=== PATIENT | male | born 1930 | race Caucasian/White ===

== ENCOUNTER → 2016-10-17 | Outpatient (CLI) | payer OTHER | LOC: FIMAGING 09:49 | DX: I65.23 Occlusion and stenosis of bilateral carotid arteries (principal); I10 Essential (primary) hypertension; Z86.73 Personal history of transient ischemic attack (TIA), and cerebral infarction without residual deficits; E11.9 Type 2 diabetes mellitus without complications ==

== ENCOUNTER → 2016-11-11 | Outpatient (CLI) | payer OTHER ==
[~2016-11-11] MED LIST: GADOBUTROL 10 ML VIAL IVP ONE
[2016-11-11 09:25] LABS: CREATININE 1.9 mg/dL (0.7-1.3)
== END ==
LOC: FIMAGING 08:14
DX: I77.1 Stricture of artery (principal)
CPT/HCPCS: 70549; A9585

== ENCOUNTER 2017-04-13 15:07 | Observation (INO) | payer OTHER ==
--- NOTE | 2017-04-13 15:22 | EDPHY ---
H & P Time Seen by Provider: 04/13/17 15:10 HPI/ROS: CHIEF COMPLAINT: Fever, cough, vomiting HISTORY OF PRESENT ILLNESS: The patient is an 86-year-old man who comes to emergency department by EMS complaining of a cough for the last 2 days and today he has had post-tussive emesis. He denies abdominal pain. No diarrhea. He is also found to have a fever here. He has not had a flu shot this year. He denies shortness of breath. He denies chest pain. No urinary symptoms. No rashes. REVIEW OF SYSTEMS: Constitutional: denies: chills, fever, recent illness, recent injury EENTM: denies: blurred vision, double vision, nose congestion Respiratory: See HPI Cardiac: denies: chest pain, irregular heart rate, lightheadedness, palpitations Gastrointestinal/Abdominal: denies: abdominal pain, diarrhea, nausea, vomiting, blood streaked stools Genitourinary: denies: dysuria, frequency, hematuria, pain Musculoskeletal: denies: joint pain, muscle pain Skin: denies: lesions, rash, jaundice, bruising Neurological: denies: headache, numbness, paresthesia, tingling, dizziness, weakness Hematologic/Lymphatic: denies: blood clots, easy bleeding, easy bruising Immunologic/allergic: denies: HIV/AIDS, transplant EXAM: GENERAL: well-nourished and in no acute distress. HEAD: Atraumatic, normocephalic. EYES: Pupils equal round and reactive to light, extraocular movements intact, sclera anicteric, conjunctiva are normal. ENT: TMs normal, nares patent, oropharynx clear without exudates. Moist mucous membranes. NECK: Normal range of motion, supple without lymphadenopathy or JVD. LUNGS: Breath sounds clear to auscultation bilaterally and equal. No wheezes rales or rhonchi. HEART: Regular rate and rhythm without murmurs, rubs or gallops. ABDOMEN: Soft, nontender, normoactive bowel sounds. No guarding, no rebound. No masses appreciated. BACK: No CVA tenderness, no spinal tenderness, step-offs or deformities EXTREMITIES: Normal range of motion, no pitting or edema. No clubbing or cyanosis. NEUROLOGICAL: Cranial nerves II through XII grossly intact. Normal speech, normal gait. 5/5 strength, normal movement in all extremities, normal sensation PSYCH: Normal mood, normal affect. SKIN: Warm, dry, normal turgor, no visible rashes or lesions. Source: Patient Exam Limitations: No limitations - Personal History Tetanus Vaccine Date: 2003 - Medical/Surgical History Hx Asthma: No Hx Chronic Respiratory Disease: No Hx Diabetes: No Hx Cardiac Disease: Yes Hx Renal Disease: Yes Hx Cirrhosis: No Hx Alcoholism: No Hx HIV/AIDS: No Hx Splenectomy or Spleen Trauma: No Other PMH: high chol. htn. 4 bypass. tia. carotidectomy- stent left carotid. right total knee repair. 1 stent to graft 2009. skin Csquamaous cell - Social History Smoking Status: Never smoked Alcohol Use: Sober Drug Use: None Constitutional: Initial Vital Signs Temperature (C) 38.2 C 04/13/17 15:15 Heart Rate 98 04/13/17 15:15 Respiratory Rate 16 04/13/17 15:15 Blood Pressure 154/87 H 04/13/17 15:15 O2 Sat (%) 92 04/13/17 15:15 O2 Delivery Mode Room Air Allergies/Adverse Reactions: HAYFEVER Allergy (Mild, Uncoded 10/25/15 18:33) Other-Enter Comments Home Medications: Medication Instructions Recorded Aspirin [Aspirin 325 mg (*)] 325 mg PO HS 02/18/14 Fluticasone Nasal [Flonase Nasal 2 sprays NASAL HS 02/18/14 [place]] Herbals/Supplements -Info Only 1 ea PO DAILY 02/18/14 Levothyroxine Sodium 75 mcg PO DAILY 02/18/14 Multivitamins [Multivitamin (*)] 1 each PO DAILY 02/18/14 Pravastatin Sodium [Pravachol] 40 mg PO HS 02/18/14 Tamsulosin HCl [Flomax 0.4 MG (*)] 0.4 mg PO HS 02/18/14 Clopidogrel Bisulfate [Plavix (*)] 75 mg PO HS 04/04/14 Finasteride [Proscar 5 MG (*)] 1 mg PO DAILY 08/07/15 Metoprolol Tartrate [Lopressor 25 25 mg PO BID 08/07/15 mg (*)] Nitroglycerin [Nitrostat 0.4 mg 0.4 mg SL PRN PRN #1 btl 08/08/15 (*)] Cholecalciferol Vit D3 [Vitamin D3 2,000 units PO DAILY 04/13/17 (*)] Denosumab [Prolia] 60 mg SQ Q180D 04/13/17 Losartan Potassium [Cozaar 25 mg 25 mg PO HS 04/13/17 (*)] Ranitidine HCl 150 mg PO DAILY 04/13/17 amLODIPine BESYLATE [Amlodipine 5 mg PO BID 04/13/17 Besylate] Acetaminophen [Tylenol ES 500 mg 1,000 mg PO Q8H tab 04/14/17 (*)] Medical Decision Making ED Course/Re-evaluation: 4:50 p.m. I discussed the case with Dr. Diogenes Dillon who will admit to the medical service. We agreed to hold off on antibiotics at this point. Differential Diagnosis: Partial list of the Differential diagnosis considered include but were not limited to; pneumonia, influenza, viral syndrome and although unlikely based on the history and physical exam, I also considered sepsis, meningitis, abdominal infection, urinary infection. - Data Points Laboratory Results: Laboratory Results 04/13/17 15:20 04/13/17 15:20 Microbiology Results: MICROBIOLOGY 04/13/17 15:15 Nasal, Sinus - Anaerobic Tube/Swab Respiratory Panel (PCR) - Final Coronovirus Oc43 Detected Medications Given: Discontinued Medications Acetaminophen (Tylenol) 1,000 mg PO EDNOW ONE Stop: 04/13/17 16:19 Last Admin: 04/13/17 16:27 Dose: 1,000 mg Acetaminophen (Tylenol) 1,000 mg PO Q8 RUEL Stop: 10/10/17 21:59 Last Admin: 04/13/17 23:35 Dose: Not Given Acetaminophen (Tylenol) 1,000 mg PO Q8H RUEL Stop: 10/11/17 00:00 Last Admin: 04/14/17 16:28 Dose: 1,000 mg Aspirin (Aspirin) 325 mg PO HS RUEL Stop: 10/10/17 20:59 Last Admin: 04/13/17 20:58 Dose: 325 mg Clopidogrel Bisulfate (Plavix) 75 mg PO HS RUEL Stop: 10/10/17 20:59 Last Admin: 04/13/17 20:59 Dose: 75 mg Famotidine (Pepcid) 20 mg PO DAILY RUEL Stop: 10/11/17 08:59 Last Admin: 04/14/17 07:54 Dose: 20 mg Finasteride (Proscar) 1 mg PO DAILY RUEL Stop: 10/11/17 08:59 Last Admin: 04/14/17 07:54 Dose: 1 mg Fluticasone Propionate (Flonase Nasal [place]) 2 sprays NS HS RUEL Stop: 10/10/17 20:59 Last Admin: 04/13/17 23:19 Dose: 2 spray Guaifenesin/Codeine Phosphate (Robitussin Ac) 10 ml PO Q6HRS PRN PRN Reason: Cough, Moderate Stop: 10/10/17 17:19 Last Admin: 04/14/17 07:55 Dose: 10 ml Sodium Chloride (Ns) 1,000 mls @ 125 mls/hr IV CONT RUEL Stop: 10/10/17 17:29 Last Admin: 04/14/17 03:16 Dose: 1,000 mls Levothyroxine Sodium (Synthroid) 75 mcg PO DAILY RUEL Stop: 10/11/17 08:59 Last Admin: 04/14/17 07:48 Dose: 75 mcg Metoprolol Tartrate (Lopressor) 25 mg PO BID RUEL Stop: 10/10/17 20:59 Last Admin: 04/14/17 07:47 Dose: 25 mg Multivitamins (Tab-A-Carly) 1 each PO DAILY RUEL Stop: 10/11/17 08:59 Last Admin: 04/14/17 07:49 Dose: 1 each Pravastatin Sodium (Pravachol) 40 mg PO HS RUEL Stop: 10/10/17 20:59 Last Admin: 04/13/17 20:58 Dose: 40 mg Tamsulosin HCl (Flomax) 0.4 mg PO HS RUEL Stop: 10/10/17 20:59 Last Admin: 04/13/17 20:59 Dose: 0.4 mg Departure - Departure Disposition: [facility] Acute Clinical Impression: Cough in adult Fever Qualifiers: Fever type: unspecified Qualified Code(s): R50.9 - Fever, unspecified Condition: Fair
[2017-04-13 15:32] LABS: % IMMATURE GRANULYOCYTES 0.4 % (0.0-1.1); ABSOLUTE IMMATURE GRANULOCYTES 0.04 10^3/uL (0.00-0.10); ADD DIFF? NO; ADD MORPH? NO; ADD SCAN? NO; ATYPICAL LYMPHOCYTE FLAG 0 (0-99); FRAGMENT RBC FLAG 0 (0-99); HEMATOCRIT 36.4 % (40.0-51.0); HEMOGLOBIN 12.6 g/dL (13.7-17.5); LEFT SHIFT FLG 0 (0-99); LIPEMIA HEMOLYSIS FLAG 90 (0-99); MEAN CELL HEMOGLOBIN 32.3 pg (27.9-34.1); MEAN CELL HEMOGLOBIN CONCENTR. 34.6 g/dL (32.4-36.7); MEAN CELL VOLUME 93.3 fL (81.5-99.8); MEAN PLATELET VOLUME 10.8 fL (8.7-11.7); PLATELET CLUMPS FLAG 0 (0-99); PLATELET COUNT 164 10^3/uL (150-400); RED CELL DISTRIBUTION WIDTH 12.9 % (11.5-15.2)
[2017-04-13 15:46] LABS: INR 1.04 (0.83-1.16); PROTIME(PATIENT) 13.5 SEC (12.0-15.0)
[2017-04-13 15:47] LABS: APTT 29.2 SEC (23.0-38.0)
[2017-04-13 15:48] LABS: ANION GAP 14 mEq/L (8-16); BILIRUBIN,TOTAL 0.7 mg/dL (0.1-1.4); CARBON DIOXIDE 18 mEq/l (22-31); CHLORIDE 106 mEq/L (97-110); CREATININE 1.8 mg/dL (0.7-1.3); GLOMERULAR FILTRATION RATE 36; GLUCOSE 104 mg/dL (70-100); POTASSIUM 4.1 mEq/L (3.5-5.2); SODIUM 138 mEq/L (134-144)
[2017-04-13] MEDS ORDERED: ACETAMINOPHEN 500 MG TAB PO ONE (16:18)
[2017-04-13 16:28] LABS: COLOR YELLOW; LEUKOCYTE ESTERASE,URINE NEGATIVE (NEGATIVE); NITRITE,URINE NEGATIVE (NEGATIVE)
[2017-04-13 16:37] LABS: WBC,URINE NONE SEEN /hpf (0-3)
[2017-04-13] MEDS ORDERED: ONDANSETRON DISINTEGRATING 4 MG TAB PO PRN (17:16)
[2017-04-13] MEDS ORDERED: ONDANSETRON 4 MG/2 ML VIAL IVP PRN (17:16)
--- NOTE | 2017-04-13 18:01 | GHP ---
[f rep st] HISTORY AND PHYSICAL DATE OF ADMISSION: 04/13/2017 HISTORY OF PRESENT ILLNESS: The patient is a pleasant 86-year-old gentleman with a history of grande ry artery disease and chronic kidney disease, who presents with fever, cough, and vomiting. He has n oticed fever and muscle aches in the last couple of days. He has not had urgency, frequency, or dysu jerardo. He has had a cough. A couple of times, the cough has been so severe that it caused some emesis . He has not had diarrhea. He has had a subjective fever. He has not had lower extremity edema. H e has not had chest pain. No belly pain. He has been eating and drinking well until today. He had poor p.o. intake today. He did not get a f josh shot because it is March. REVIEW OF SYSTEMS: A complete 10-point review of systems was conducted and negative except as noted in the HPI. PAST MEDICAL HISTORY: 1. Coronary artery disease with remote bypass and stents. He had an angiogram done in July where no intervention was made. I refer the reader to the report for further details. 2. Chronic kidney disease. Baseline creatinine of 1.8. 3. Hypertension. 4. Diabetes. 5. Dyslipidemia. 6. Carotid disease. 7. 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 8. Pulmonary hypertension. 9. BPH. 10. Hypothyroidism. ALLERGIES: Seasonal allergies/hay fever. HOME MEDICATIONS: Aspirin, Plavix, finasteride, fluticasone, hydrocodone, Tylenol, levothyroxine, me toprolol, multivitamin, nitroglycerin, pravastatin, tamsulosin. SOCIAL HISTORY: Lives with his in a condo. They were around a lot of people this weekend at [place] [employer] [place] No tobacco. No alcohol. FAMILY HISTORY: Reviewed and unremarkable. His parents are . PHYSICAL EXAMINATION: VITALS: Today, temp 38.2, blood pressure 154/87, pulse 98, breathing 16 times a minute, 98% on room air. GENERAL: No acute distress. He appears a little bit uncomfortable. He fell asleep during the interview. HEENT: Sclerae anicteric. Oropharynx clear. Mucous membranes d ry. NECK: Supple, without lymphadenopathy or JVD. LUNGS: Clear to auscultation bilaterally. HEAR T: S1, S2, with a systolic ejection murmur heard best at the left upper sternal border. ABDOMEN: S oft, nontender, nondistended. LOWER EXTREMITIES: Without edema. Calves are nontender. SKIN: With out rash. NEUROLOGIC: Exam is nonfocal. LABORATORY DATA: White count 9, hematocrit 36, platelets 164,000. INR is 1. Venous lactate is 1.3. Sodium 138, potassium 4.1, chloride 106, bicarb 18, BUN 27, creatinine 1.8 which is slightly greate r than his baseline of about 1.5. TSH is 3.1. He had a UA today which was unremarkable. Influenza is pending. Group A screen is negative. Chest x-ray, interpreted by me, shows no acute cardiopulmon hemal disease. The radiologist commented on some left lobe scarring. I discussed the case with Dr. Harrison Baker. ASSESSMENT AND PLAN: This is an 86-year-old gentleman who presents with a viral illness and post-tus sive emesis. 1. Viral illness. I suspect this patient has influenza based on the early spread of myalgias and fe marquise, without another apparent source. I will hold on antibiotics. We will start Tamiflu should it c ome back positive. We will provide supportive care with IV fluids, scheduled Tylenol, and anti-emeti cs as necessary. 2. Post-tussive emesis. We will provide him some p.r.n. Robitussin. He should probably take it at night. 3. Coronary artery disease. Stable. We will continue his medications. 4. Fever. Blood cultures have been drawn. I think this is influenza. The patient does not have se psis. 5. Disposition: Observation status. /[id number]/MODL
[2017-04-13] MEDS: NS 1,000 ML IV SCH (19:29)
[2017-04-13] MEDS: METOPROLOL TARTRATE 25 MG TAB PO SCH (20:59)
[2017-04-13] MEDS ORDERED: ASPIRIN 325 MG TAB PO SCH (21:00)
[2017-04-13] MEDS ORDERED: CLOPIDOGREL BISULFATE 75 MG TAB PO SCH (21:00)
[2017-04-13] MEDS ORDERED: FLUTICASONE NASAL 120 SPRAYS/16 GM MDI NS SCH (21:00)
[2017-04-13] MEDS ORDERED: PRAVASTATIN SODIUM 40 MG TAB PO SCH (21:00)
[2017-04-13] MEDS ORDERED: TAMSULOSIN HCL 0.4 MG CAP PO SCH (21:00)
[2017-04-13] MEDS: guaiFENesin/CODEINE PHOS 10 ML UDCUP PO PRN (21:17)
[2017-04-13] MEDS ORDERED: ACETAMINOPHEN 500 MG TAB PO SCH (22:00)
[2017-04-14] MEDS: ACETAMINOPHEN 500 MG TAB PO SCH ×3 (00:28→16:28)
[2017-04-14] MEDS: NS 1,000 ML IV SCH (03:16)
[2017-04-14 07:34] VITALS: RESP 18
[2017-04-14] MEDS: METOPROLOL TARTRATE 25 MG TAB PO SCH (07:47)
[2017-04-14] MEDS: guaiFENesin/CODEINE PHOS 10 ML UDCUP PO PRN (07:55)
[2017-04-14] MEDS ORDERED: MULTIVITAMINS 1 EACH TAB PO SCH (09:00)
[2017-04-14] MEDS ORDERED: FAMOTIDINE 20 MG TAB PO SCH (09:00)
[2017-04-14] MEDS ORDERED: NON-FORMULARY NEW DRUG (Ranitidine Hcl [Ranitidine Hcl] 150 MG) PO SCH (09:00)
[2017-04-14] MEDS ORDERED: Herbals/Supplements -Info Only PO SCH (09:00)
[2017-04-14] MEDS ORDERED: LEVOTHYROXINE 75 MCG TAB PO SCH (09:00)
[2017-04-14] MEDS ORDERED: FINASTERIDE 5 MG TAB PO SCH (09:00)
--- NOTE | 2017-04-14 09:26 | HOSPPROG ---
Hospitalist Progress Note Assessment/Plan: Patient is an 86-year-old male with a history of coronary artery disease and chronic kidney disease. He presented the emergency room with fever cough and vomiting. He also is complaining of muscle aches today is my 1st encounter with the patient. Chart reviewed. * Upper respiratory illness likely viral PCR grew out cornovirus OC43 time will give supportive care. Not likely treated with antivirals * emesis secondary from coughing bouts * chronic kidney disease at his baseline of 1.8 * fever blood cultures are pending elevated temp on admission but none further * plan. Will DC today. Blood cultures are pending will. Will follow up and make sure that these are negative Subjective: Wolf is feeling well today, no complaints. Objective: Vital Signs Temp Pulse Resp BP Pulse Ox 36.7 C 74 18 103/60 92 04/14/17 07:46 04/14/17 07:46 04/14/17 07:46 04/14/17 07:46 04/14/17 07:46 04/13/17 04/14/17 04/15/17 05:59 05:59 05:59 Intake Total 1778 Balance 1778 PT 13.5 SEC (12.0-15.0) 04/13/17 15:20 INR 1.04 (0.83-1.16) 04/13/17 15:20 - Physical Exam Constitutional: no apparent distress, appears nourished, not in pain Eyes: PERRL Ears, Nose, Mouth, Throat: hearing normal Cardiovascular: regular rate and rhythym, systolic murmur Respiratory: no respiratory distress, no rales or rhonchi, clear to auscultation Gastrointestinal: normoactive bowel sounds Skin: warm Musculoskeletal: full muscle strength Neurologic: AAOx3 Psychiatric: interacting appropriately, not anxious ICD10 Worksheet Patient Problems: Problems Problem Status Onset Cough in adult Acute Fever Acute Chest pain Acute Neck pain Acute Right knee DJD Acute
[2017-04-14 16:16] VITALS: BP 143/64; PULSE 63; TEMP 98.3; O2SAT 95
--- NOTE | 2017-04-14 17:28 | GDS ---
[f rep st] DISCHARGE SUMMARY DISCHARGE DIAGNOSES: 1. Upper respiratory illness, viral. 2. Emesis. 3. Chronic kidney disease. 4. Fever. HISTORY OF PRESENT ILLNESS: Briefly, the patient is an 86-year-old male with a history of coronary artery disease and chronic kidney disease. He presented to the emergency room with fever, cough, and vomiting. He also was complaining of muscle aches. A viral PCR for respiratory was sent; it grew out coronavirus, likely that he had a common cold. HOSPITAL COURSE: Per problem: 1. Upper respiratory viral illness: He is much improved today. 2. Emesis: This is secondary to coughing bouts. Recommending he get Robitussin DM over the counter. 3. Chronic kidney disease: He is at his baseline 1.8. 4. Fever: Blood cultures are pending. He has had an elevated temperature on admission but none further. He is feeling well. I have recommended a that he follow up with his blood cultures; but thus far, there is no growth. PENDING LABORATORY: Blood cultures are pending. CONDITION AT DISCHARGE: Stable. Blood pressure is 120/58, heart rate is 75, respiratory rate is 18, O2 sats on room air 93%, and temperature 36.4 Celsius. MEDICATIONS AT DISCHARGE: Please see the EMR. DISCHARGE INSTRUCTIONS: 1. To have his primary care provider follow up on his blood cultures. 2. If he develops fever, chills, chest pain, or shortness of breath, return to the ER. /[id number]/MODL MTDD
--- NOTE | 2017-04-14 18:08 | ASDISCHSUM ---
Discharge Information Plan Status: Medically Cleared to Leave: Discharge Date:04/14/2017 04:50 PM CM D/C Disposition: ADT D/C Disposition:Home, Routine, Self-Care Projected Discharge Date:04/14/2017 04:50 PM Transportation at D/C: Discharge Delay Reason: Follow-Up Date:04/14/2017 04:50 PM Discharge Slot: Final Diagnosis: Placement Information Patient Contact Information Contact Name:DAVID Relationship: Address:[address] [place] [address] City:[place] Alternate Phone: State/Zip Code:[place] [address] Email: Financial Information Financial Class:Medicare Advantage Plans Primary Plan Desc:[facility] MEDICARE COMPLETE Primary Plan Number:[id number] Secondary Plan Desc: Secondary Plan Number: Assessment Information Intervention Information Intervention Type:*JANKI-Signed Date of Service:04/14/2017 10:44 AM Patient Type:Observation Staff Member:Rachna Torres Hours: Discipline: Severity: Comment:
== END 2017-04-14 16:50 | disposition home or self-care (01) ==
LOC: EDUNIT# → F3E 18:42
PROVIDERS: ADMIT Internal Medicine; ATTEND Internal Medicine
DX: J06.9 Acute upper respiratory infection, unspecified (principal); B97.29 Other coronavirus as the cause of diseases classified elsewhere; R11.10 Vomiting, unspecified; R50.9 Fever, unspecified; N18.9 Chronic kidney disease, unspecified; I25.10 Atherosclerotic heart disease of native coronary artery without angina pectoris; E78.5 Hyperlipidemia, unspecified; I12.9 Hypertensive chronic kidney disease with stage 1 through stage 4 chronic kidney disease, or unspecified chronic kidney disease; E11.9 Type 2 diabetes mellitus without complications; I35.0 Nonrheumatic aortic (valve) stenosis; I34.0 Nonrheumatic mitral (valve) insufficiency; I27.9 Pulmonary heart disease, unspecified; N40.0 Benign prostatic hyperplasia without lower urinary tract symptoms; E03.9 Hypothyroidism, unspecified; Z95.5 Presence of coronary angioplasty implant and graft; Z95.1 Presence of aortocoronary bypass graft
CPT/HCPCS: 71020; 97161; 97165; 99285; G0378; G8978; G8979; G8980; G8987; G8988; G8989

== ENCOUNTER → 2017-07-26 | Outpatient (CLI) | payer OTHER | LOC: FIMAGING 07:39 | DX: I65.21 Occlusion and stenosis of right carotid artery (principal) ==

== ENCOUNTER 2018-01-07 16:30 | Observation (INO) | payer OTHER ==
--- NOTE | 2018-01-07 17:40 | EDPHY ---
HPI/HX/ROS/PE/MDM Narrative: CHIEF COMPLAINT: Fever, frequent urination HISTORY OF PRESENT ILLNESS: The patient is an anticoagulated (Plavix and aspirin) 87 y/o male with a history of coronary disease bypass, TIA, and carotid endarterectomy complaining of frequent urination, fever, and chills for a couple days. This morning he had dry heaves. He reports being more confused than normal and having trouble word finding. He has associated global weakness. He presented to urgent care who identified nitrates and leukocytes on a dip stick. They advised him to present to the emergency department for care due to concern for sepsis. He denies back pain, stomach pain, slurred speech, focal weakness, numbness or tingling, or any other associated symptoms. No chest pain, shortness of breath, palpitations, diarrhea, headache, lightheadedness. REVIEW OF SYSTEMS: Aside from elements discussed in the HPI, a comprehensive 10-point review of systems was reviewed and is negative. PAST MEDICAL HISTORY: Coronary artery disease, bypass, TIA, carotid endarterectomy, total knee replacement, rotator cuff tear. 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 Slightly confused. Slow to find words. HEENT: Atraumatic. Eyes: No icterus, no injection. Mouth: moist mucous membranes. No erythema or lesions. Neck: supple with no adenopathy. LUNGS: Clear to auscultation bilaterally, no wheezes, rhonchi or rales. CARDIAC: 3/6 systolic murmur. Regular rate and rhythm, no rubs or gallops. ABDOMEN: Soft, nontender, nondistended, bowel sounds normal. BACK: No CVA tenderness. EXTREMITIES: No trauma. No edema. Range of motion is normal throughout. NEURO: Alert and oriented, grossly nonfocal. SKIN: Warm and dry, no rash. PSYCHIATRIC: Normal mentation, no agitation. ED Course: X-ray: Chest x-ray was obtained. I viewed the images myself on the PACS system. My interpretation of the images is: airways disease. The radiologist interpretation is airways disease. I discussed the x-ray findings with the patient. The patient presents with confusion, frequent urination, and fever. A UA at urgent care showed ketones and leukocytes. Plan for CBC, basic metabolic panel, bilirubin, lactic acid, blood cultures, urinalysis, urine microscopy, and chest x-ray. 6:45PM- Labs show elevated WBC and UA is confirmatory for UTI. Chest x-ray is indicate of airways disease but no pneumonia. Plan for admission. Course discussed with Dr. Linda Espinosa. Patient admitted to [facility]. Patient tells me he does have a known history of a murmur. This may need further investigation while he is in the hospital. Severe Sepsis/Septic Shock Care Note The patient presents to the ED with urinary tract infection identified as an acute infection. The patient did have evidence of end-organ dysfunction and met criteria for severe sepsis. This condition was identified by myself at 18 30. The patients vital signs are 140/83, 82, 37.9, 16, O2 sat 94%. The patient has a venous lactic acid performed within 3 hours of the identification of severe sepsis which was found to be 1.8. The patient has blood cultures drawn and received ceftriaxone IV, per the severe sepsis treatment protocol. MDM: Severe Sepsis/Septic Shock Care Note The patient presents to the ED with urinary tract infection identified as an acute infection. The patient did have evidence of end-organ dysfunction and met criteria for severe sepsis. This condition was identified by myself at [ time]. The patients vital signs are [BP, HR, RR, SaO2, temp]. The patient has a [venous, arterial] lactic acid performed within 3 hours of the identification of severe sepsis which was found to be [value]. The patient has blood cultures drawn and received [antibiotic] IV, per the severe sepsis treatment protocol. [ The patient had already received [antibiotic] within the past 24 hours.] [The initial lactate was elevated and rechecked within 6 hours of the identification time of severe sepsis and found to be: [value].] The patient also met criteria for septic shock because of [systolic blood pressure <90 or MAP <65 or greater than 40 point drop in SBP after crystalloid infusion or arterial lactic acid 4.0]. The patient received a 30 mL/kg bolus within 3 hours. After this intervention, the patients hypotension [did/did not ] improve. [Because of persistent hypotension, the patient was started on [ name of vasopressor] and central venous access was established.] Focused examination demonstrated [vitals], [examination of the heart and lungs], [ capillary refill assessment], [peripheral pulse examination], and [skin examination]. The patient was transferred to the ICU under the care of [ hospitalist]. - Data Points Imaging Results: Imaging Impressions Chest X-Ray 01/07/18 17:52 Impression: 1. Suspect airways disease with no superimposed pneumonia. 2. Left basilar opacity is similar to prior studies consistent with scarring. 3. See above report for additional findings. Imaging: I viewed and interpreted images myself Laboratory Results: Laboratory Results 01/07/18 18:10 01/07/18 18:10 01/07/18 01/07/18 01/07/18 18:10 18:10 18:10 WBC 19.82 10^3/uL H 10^3/uL (3.80-9.50) RBC 3.97 10^6/uL L 10^6/uL (4.40-6.38) Hgb 12.7 g/dL L g/dL (13.7-17.5) Hct 37.4 % L % (40.0-51.0) MCV 94.2 fL fL (81.5-99.8) MCH 32.0 pg pg (27.9-34.1) MCHC 34.0 g/dL g/dL (32.4-36.7) RDW 12.8 % % (11.5-15.2) Plt Count 184 10^3/uL 10^3/uL (150-400) MPV 10.6 fL fL (8.7-11.7) Neut % (Auto) 0.0 % L % (39.3-74.2) Lymph % (Auto) 0.0 % L % (15.0-45.0) [place] % (Auto) 0.0 % L % (4.5-13.0) Eos % (Auto) 0.0 % L % (0.6-7.6) Baso % (Auto) 0.0 % L % (0.3-1.7) Nucleat RBC Rel Count 0.0 % % (0.0-0.2) Absolute Neuts (auto) 0.00 10^3/uL L 10^3/uL (1.70-6.50) Absolute Lymphs (auto) 0.00 10^3/uL L 10^3/uL (1.00-3.00) Absolute Monos (auto) 0.00 10^3/uL L 10^3/uL (0.30-0.80) Absolute Eos (auto) 0.00 10^3/uL L 10^3/uL (0.03-0.40) Absolute Basos (auto) 0.00 10^3/uL L 10^3/uL (0.02-0.10) Absolute Nucleated RBC 0.00 10^3/uL 10^3/uL (0-0.01) Immature Gran % 0.0 % % (0.0-1.1) Immature Gran # 0.00 10^3/uL 10^3/uL (0.00-0.10) RBC/WBC/PLT Morphology TNP Platelet Estimate TNP PT 14.0 SEC SEC (12.0-15.0) INR 1.06 (0.83-1.16) APTT 30.6 SEC SEC (23.0-38.0) VBG Lactic Acid Sodium 132 mEq/L L mEq/L (135-145) Potassium 4.0 mEq/L mEq/L (3.3-5.0) Chloride 104 mEq/L mEq/L (97-110) Carbon Dioxide 19 mEq/l L mEq/l (22-31) Anion Gap 9 mEq/L mEq/L (8-16) BUN 24 mg/dL H mg/dL (7-23) Creatinine 1.6 mg/dL H mg/dL (0.7-1.3) Estimated GFR 41 Glucose 130 mg/dL H mg/dL (70-100) Calcium 8.7 mg/dL mg/dL (8.5-10.4) Total Bilirubin 1.1 mg/dL mg/dL (0.1-1.4) Urine Color Urine Appearance Urine pH Ur Specific [place] Urine Protein Urine Ketones Urine Blood Urine Nitrate Urine Bilirubin Urine Urobilinogen Ur Leukocyte Esterase Urine RBC Urine WBC Ur Epithelial Cells Urine Bacteria Urine Mucus Urine Glucose 01/07/18 01/07/18 18:10 17:59 WBC RBC Hgb Hct MCV MCH MCHC RDW Plt Count MPV Neut % (Auto) Lymph % (Auto) [place] % (Auto) Eos % (Auto) Baso % (Auto) Nucleat RBC Rel Count Absolute Neuts (auto) Absolute Lymphs (auto) Absolute Monos (auto) Absolute Eos (auto) Absolute Basos (auto) Absolute Nucleated RBC Immature Gran % Immature Gran # RBC/WBC/PLT Morphology Platelet Estimate PT INR APTT VBG Lactic Acid 1.8 mmol/L mmol/L (0.7-2.1) Sodium Potassium Chloride Carbon Dioxide Anion Gap BUN Creatinine Estimated GFR Glucose Calcium Total Bilirubin Urine Color YELLOW Urine Appearance HAZY Urine pH 5.0 (5.0-7.5) Ur Specific [place] 1.014 (1.002-1.030) Urine Protein 2+ H (NEGATIVE) Urine Ketones TRACE H (NEGATIVE) Urine Blood 2+ H (NEGATIVE) Urine Nitrate NEGATIVE (NEGATIVE) Urine Bilirubin NEGATIVE (NEGATIVE) Urine Urobilinogen NEGATIVE EU EU (0.2-1.0) Ur Leukocyte Esterase 2+ H (NEGATIVE) Urine RBC 3-5 /hpf H /hpf (0-3) Urine WBC 50-182 /hpf H /hpf (0-3) Ur Epithelial Cells TRACE /lpf /lpf (NONE-1+) Urine Bacteria 2+ /hpf H /hpf (NONE SEEN) Urine Mucus TRACE /lpf /lpf (NONE-1+) Urine Glucose NEGATIVE (NEGATIVE) Medications Given: Discontinued Medications Sodium Chloride (Ns) 1,000 mls @ 0 mls/hr IV ONCE ONE; Wide Open PRN Reason: Protocol Stop: 01/07/18 17:54 Last Admin: 01/07/18 18:17 Dose: 1,000 mls Ceftriaxone Sodium/Dextrose (Rocephin 1 Gm (Premix)) 50 mls @ 100 mls/hr IV DAILY RUEL PRN Reason: Protocol Stop: 02/06/18 18:59 Last Admin: 01/07/18 18:57 Dose: 50 mls General Time Seen by Provider: 01/07/18 17:13 Initial Vital Signs: Initial Vital Signs Temperature (C) 37.9 C 01/07/18 16:40 Heart Rate 86 01/07/18 16:40 Respiratory Rate 20 01/07/18 16:40 Blood Pressure 127/79 H 01/07/18 16:40 O2 Sat (%) 95 01/07/18 16:40 O2 Delivery Mode Room Air Allergies/Adverse Reactions: HAYFEVER Allergy (Mild, Uncoded 10/25/15 18:33) Other-Enter Comments Home Medications: Medication Instructions Recorded Aspirin [Aspirin 325 mg (*)] 325 mg PO HS 01/07/18 Cholecalciferol Vit D3 [Vitamin D3 2,000 units PO DAILY 01/07/18 2000 units tab (OTC)] Clopidogrel Bisulfate [Plavix (*)] 75 mg PO HS 01/07/18 Denosumab [Prolia] 60 mg SQ Q180D 01/07/18 Finasteride [Proscar 5 MG (*)] 1.67 mg PO HS 01/07/18 Fluticasone Nasal [Flonase Nasal 2 sprays NASAL HS 01/07/18 [place] (RX)] Furosemide [Lasix 20 MG (*)] 20 mg PO DAILY 01/07/18 Herbals/Supplements -Info Only 1 ea PO DAILY 01/07/18 Levothyroxine [Synthroid 88 mcg 88 mcg PO DAILY06 01/07/18 (*)] Metoprolol Tartrate [Lopressor 25 25 mg PO BID 01/07/18 mg (*)] Multivitamins [Multivitamin (*)] 1 each PO DAILY 01/07/18 Pravastatin Sodium 40 mg PO HS 01/07/18 Ranitidine HCl 150 mg PO HS 01/07/18 Tamsulosin HCl [Flomax 0.4 MG (*)] 0.4 mg PO HS 01/07/18 amLODIPine BESYLATE [Amlodipine 5 mg PO BID 01/07/18 Besylate] Departure - Departure Disposition: [facility] Inpatient Acute Clinical Impression: Urinary tract infection Qualifiers: Urinary tract infection type: acute cystitis Hematuria presence: without hematuria Qualified Code(s): N30.00 - Acute cystitis without hematuria Fever Qualifiers: Fever type: unspecified Qualified Code(s): R50.9 - Fever, unspecified Sepsis Qualifiers: Sepsis type: sepsis due to unspecified organism Qualified Code(s): A41.9 - Sepsis, unspecified organism Condition: Fair Report Scribed for: Martha Quiroz Report Scribed by: Angelina Marquez Date of Report: 01/07/18 Time of Report: 19:10 Physician Review and Approval Statement: Portions of this note were transcribed by a medical laboratory manager. I personally performed a history, physical exam, medical decision making, and confirmed accuracy of information the transcribed note.
[2018-01-07] MEDS ORDERED: NS 1,000 ML IV ONE (17:53)
[2018-01-07 18:30] LABS: PLATELET COUNT 184 10^3/uL (150-400)
[2018-01-07 18:37] LABS: INR 1.06 (0.83-1.16)
[2018-01-07] MEDS ORDERED: ONDANSETRON DISINTEGRATING 4 MG TAB PO PRN (21:01)
[2018-01-07] MEDS ORDERED: ONDANSETRON 4 MG/2 ML VIAL IVP PRN (21:01)
[2018-01-07] MEDS ORDERED: ACETAMINOPHEN 325 MG TAB PO PRN (21:01)
[2018-01-07] MEDS ORDERED: NS 1,000 ML IV SCH (21:15)
--- NOTE | 2018-01-07 21:40 | GHP ---
[f rep st] HISTORY AND PHYSICAL DATE OF ADMISSION: 01/07/2018 CHIEF COMPLAINT: Fever, urgency. HISTORY OF PRESENT ILLNESS: This is an 87-year-old male, who presented with sudden onset of urgency, fever, feeling unwell overall, myalgias last night. Does not have dysuria, but has frequency and ur gency. He has had a urinary tract infection probably once before. He does have BPH. He does have a n extensive cardiac history. He denies any chest pain or shortness of breath. REVIEW OF SYSTEMS: A 10-point review of systems was obtained and other than as stated above was nega tive. PAST MEDICAL HISTORY: 1. Coronary artery disease, status post CABG. 2. Diet-controlled type 2 diabetes. 3. Hypertension. 4. Chronic kidney disease. Baseline creatinine 1.8. 5. BPH. 6. Hypothyroidism. 7. History of carotid disease. 8. Valvular heart disease with mild to moderate aortic stenosis, aortic regurgitation, mitral regurg itation. 9. Pulmonary hypertension. MEDICATIONS: Reviewed. SOCIAL HISTORY: Lives with his . FAMILY HISTORY: Both parents are . PHYSICAL EXAMINATION: VITAL SIGNS: Afebrile. Blood pressure is 165/80, heart rate 92, oxygen satur ation 95% on room air. GENERAL: The patient is well developed in no apparent distress. HEENT: Non icteric sclerae. Extraocular muscles intact. Moist mucous membranes. NECK: Supple. No thyromegal y. LUNGS: Good effort. Clear to auscultation bilaterally. CARDIOVASCULAR: Regular rate and rhyth m. 3/6 systolic murmur heard best at the left upper sternal border. No gallops. ABDOMEN: Positive bowel sounds. Soft, nontender, nondistended. No hepatosplenomegaly. EXTREMITIES: No clubbing, cy anosis, or edema. SKIN: Without rash, warm, dry, intact. NEUROLOGIC: Moving all 4 extremities equally. PSYCHIATRIC: : Normal affect. LABS: White count elevated at 19. Sodium 132, potassium 4.0, creatinine 1.6, glucose 130. UA is po sitive for urinary tract infection. IMAGING DATA: Chest x-ray: Personally reviewed and interpreted. No acute changes. ASSESSMENT/PLAN: An 87-year-old male presenting with urinary tract infection. 1. Urinary tract infection. The patient will be admitted. Given IV fluids. Will continue ceftriax one. 2. History of coronary artery disease. Continue medications. 3. Hypertension. Continue medications. 4. Benign prostatic hypertrophy. /[id number]/MODL
[2018-01-08 04:51] LABS: PLATELET COUNT 163 10^3/uL (150-400)
[2018-01-08] MEDS: LEVOTHYROXINE 88 MCG TAB PO SCH (05:25)
--- NOTE | 2018-01-08 08:22 | HOSPPROG ---
Hospitalist Progress Note Assessment/Plan: Patient is an 87-year-old male who presented with fever and overall feeling poorly. He also has dysuria with associated frequency and urgency. Today is my 1st encounter with the patient. Chart reviewed. * urinary tract infection -IV ceftriaxone -awaiting urine cx -blood cx pending * renal insufficiency -baseline creatinine is 1.8, creatinine today is 1.5 * leukocytosis -recheck in a.m. * history of coronary artery disease * hypertension -stable * BPH *Plan: will require another midnight stay for treatment and f/u with cultures Subjective: Rocky is feeling better today,no complaints. Objective: Vital Signs Temp Pulse Resp BP Pulse Ox 37.0 C 78 16 114/62 93 01/08/18 07:36 01/08/18 07:36 01/08/18 07:36 01/08/18 07:36 01/08/18 07:36 Laboratory Results 01/08/18 04:37 01/08/18 04:37 01/07/18 01/08/18 01/09/18 05:59 05:59 05:59 Intake Total 1250 Output Total 700 400 Balance 550 -400 PT 14.0 SEC (12.0-15.0) 01/07/18 18:10 INR 1.06 (0.83-1.16) 01/07/18 18:10 - Physical Exam Constitutional: no apparent distress, appears nourished, not in pain Eyes: PERRL Ears, Nose, Mouth, Throat: hearing normal Cardiovascular: regular rate and rhythym, systolic murmur Respiratory: no respiratory distress Skin: warm Musculoskeletal: full muscle strength Neurologic: AAOx3 Psychiatric: interacting appropriately, not anxious ICD10 Worksheet Patient Problems: Problems Problem Status Onset Fever Acute Sepsis Acute Urinary tract infection Acute Chest pain Acute Cough in adult Acute Neck pain Acute Right knee DJD Acute
[2018-01-08] MEDS: amLODIPine BESYLATE 5 MG TAB PO SCH ×2 (09:02→19:50)
[2018-01-08] MEDS: METOPROLOL TARTRATE 25 MG TAB PO SCH ×2 (09:03→19:50)
--- NOTE | 2018-01-08 11:53 | PDMN ---
Medical Necessity Medical necessity: MCG: M300, A-2 days, UTI: 87 y/o w/ extensive cardiac hx w/ CABG, diabetes type II, + UA for UTI, dysuria, creatinine 1.6, elevated WBC 19.82, needs scheduled IV antibx and continuous IV fluids. Continue to monitor and treat, anticipate >2MN.
--- NOTE | 2018-01-08 12:19 | ASMTCASEMG ---
Living Arrangements What is your living Answers: With Spouse arrangement? Who do you live with? Type Of Residence What kind of residence do Answers: House you live in? Discharge Plan Comments Coordination Status Comments Notes: CM spoke to CATRACHITO Hamilton regarding d/c POC. Pt is a 87 y/o man admitted for urosepsis, fever, UTI, and confusion. Needs are TBD at this time. Therapies have been ordered and awaiting recommendations. CM to follow. Plan: TBD Date Signed: 01/08/2018 12:18 PM Electronically Signed By:YAN Perez
[2018-01-08] MEDS ORDERED: FAMOTIDINE 20 MG TAB PO SCH (21:00)
[2018-01-08] MEDS ORDERED: FLUTICASONE NASAL 120 SPRAYS/16 GM MDI EACHNARE SCH (21:00)
[2018-01-08] MEDS ORDERED: FINASTERIDE 5 MG TAB PO SCH (21:00)
[2018-01-08] MEDS ORDERED: PRAVASTATIN SODIUM 40 MG TAB PO SCH (21:00)
[2018-01-08] MEDS ORDERED: TAMSULOSIN HCL 0.4 MG CAP PO SCH (21:00)
[2018-01-08] MEDS ORDERED: CLOPIDOGREL BISULFATE 75 MG TAB PO SCH (21:00)
[2018-01-08] MEDS ORDERED: ASPIRIN 325 MG TAB PO SCH (21:00)
[2018-01-09] MEDS: LEVOTHYROXINE 88 MCG TAB PO SCH (04:53)
[2018-01-09 05:51] LABS: PLATELET COUNT 159 10^3/uL (150-400)
[2018-01-09 08:13] VITALS: BP 133/63
[2018-01-09] MEDS: METOPROLOL TARTRATE 25 MG TAB PO SCH (09:08)
[2018-01-09] MEDS: amLODIPine BESYLATE 5 MG TAB PO SCH (09:08)
--- NOTE | 2018-01-09 09:41 | HOSPPROG ---
Hospitalist Progress Note Assessment/Plan: Patient is an 87-year-old male who presented with fever and overall feeling poorly. He also has dysuria with associated frequency and urgency. * urinary tract infection -IV ceftriaxone -urine cx is jaimes sensitive -dc home w f/u with Dr Ramirez * renal insufficiency -baseline creatinine is 1.8, creatinine today is 1.6 * leukocytosis -resolved * history of coronary artery disease * hypertension -stable * BPH *Plan: dc home w close f/u Subjective: Wolf is feeling well today, no complaints. Objective: Vital Signs Temp Pulse Resp BP Pulse Ox 36.8 C 80 16 133/63 H 94 01/09/18 08:00 01/09/18 08:00 01/09/18 08:00 01/09/18 08:00 01/09/18 08:00 Microbiology 01/07/18 Unknown Urine Culture - Final Urine,Clean Catch Escherichia Coli Laboratory Results 01/09/18 04:53 01/09/18 04:53 01/08/18 01/09/18 01/10/18 05:59 05:59 05:59 Intake Total 1250 360 Output Total 700 400 Balance 550 -40 PT 14.0 SEC (12.0-15.0) 01/07/18 18:10 INR 1.06 (0.83-1.16) 01/07/18 18:10 - Physical Exam Constitutional: no apparent distress, appears nourished, not in pain Eyes: PERRL Ears, Nose, Mouth, Throat: hard of hearing Respiratory: no respiratory distress Skin: warm, normal color Musculoskeletal: full muscle strength Neurologic: AAOx3 Psychiatric: interacting appropriately ICD10 Worksheet Patient Problems: Problems Problem Status Onset Fever Acute Sepsis Acute Urinary tract infection Acute Chest pain Acute Cough in adult Acute Neck pain Acute Right knee DJD Acute
--- NOTE | 2018-01-09 09:58 | ASMTLACE ---
LACE Length of stay for Answers: 2 days current admission Acuity / Level of Answers: Yes Care: Did the patient have an inpatient admission? Comorbidities - select Answers: Cerebrovascular disease all that apply (CVA, TIA, aneurysms, vasc ular dementia) Coronary Artery Disease Diabetes (uncontrolled or controlled) Other Notes: HTN; CKD # of Emergency department Answers: 1-2 visits in the last 6 months Score: 11 Date Signed: 01/09/2018 09:56 AM Electronically Signed By:YAN Perez
--- NOTE | 2018-01-09 11:33 | GDS ---
[f rep st] DISCHARGE SUMMARY DISCHARGE DIAGNOSES: 1. Urinary tract infection. 2. Renal insufficiency. 3. Leukocytosis. 4. History of coronary artery disease. 5. Hypertension. 6. BPH. HISTORY OF PRESENT ILLNESS: Briefly Mr. Portillo is an 87-year-old gentleman who presented with fever and overall feeling poorly. He also had dysuria with associated frequency and urgency. He was treat ed with ceftriaxone. His urine culture was sensitive to this. Today, he is feeling markedly better and will be discharged home and follow up with Dr. Ramirez. HOSPITAL COURSE: 1. Urinary tract infection. We will discharge him on a few more days of oral antibiotics. 2. Renal insufficiency. His baseline creatinine is about 1.8. Today is 1.6. 3. Leukocytosis, resolved. 4. History of coronary artery disease, stable. 5. Hypertension, stable. 6. BPH. Continue on medications. Further follow up with Dr. Ramirez. DISCHARGE CONDITION: Stable. Blood pressure is 133/63, heart rate of 80, respiratory rate of 16, O2 sats on room air 94%, temperature 36.8 Celsius. MEDICATIONS AT DISCHARGE: Please see the EMR. DISCHARGE INSTRUCTIONS: 1. To follow up with Dr. Ramirez in case he is having ongoing urinary tract infections. 2. To start his antibiotics tomorrow. 3. To follow up with his anemia. He needs to get further evaluation by his PCP. 4. If he develops fever, chills, diarrhea, or shortness of breath, return to the ER or see his docto r immediately. /[id number]/MODL
--- NOTE | 2018-01-12 11:13 | PQFORM ---
PHYSICIAN QUERY FORM Needs Your Response This query form is being sent to you to assure this patient record is coded properly. Please respond to the question below: GLOBE TESTER QUESTION: Dr Gonsales The ED report makes mention of Severe Sepsis/Septic Shock but there is no mention in the Progress Notes nor on the Discharge Summary. Just want to verify if this is a diagnosis that this patient had. ___ Yes ___ No _x__ Unable to determine ___ Other (Please Specify ) Thank You Gillian WEST Signing Agent INSTRUCTIONS FOR RESPONSE: Answer question by clicking on the "Edit Document" button. Move cursor to area below the stars. When complete, hit "Save." Click on the "Sign" button, then click "Sign" again. Type in your PIN and hit "Enter." MTDD
== END 2018-01-09 11:14 | disposition home or self-care (01) ==
LOC: OBSVTOIN 19:13 → INTOOBSV 19:13 → F3E 19:53
PROVIDERS: ADMIT Internal Medicine; ATTEND Internal Medicine
DX: N39.0 Urinary tract infection, site not specified (principal); I25.10 Atherosclerotic heart disease of native coronary artery without angina pectoris; E11.22 Type 2 diabetes mellitus with diabetic chronic kidney disease; I12.9 Hypertensive chronic kidney disease with stage 1 through stage 4 chronic kidney disease, or unspecified chronic kidney disease; N18.9 Chronic kidney disease, unspecified; I27.20 Pulmonary hypertension, unspecified; I08.0 Rheumatic disorders of both mitral and aortic valves; N40.0 Benign prostatic hyperplasia without lower urinary tract symptoms; D72.829 Elevated white blood cell count, unspecified; Z95.1 Presence of aortocoronary bypass graft; Z96.659 Presence of unspecified artificial knee joint; Z86.73 Personal history of transient ischemic attack (TIA), and cerebral infarction without residual deficits; Z79.01 Long term (current) use of anticoagulants; Z79.82 Long term (current) use of aspirin
CPT/HCPCS: 71046; 96361; 96365; 97161; 97165; 99285; G0378; G8978; G8979; G8980; G8987; G8988; G8989; J0696

== ENCOUNTER → 2018-05-08 | Outpatient (CLI) | payer OTHER | LOC: FIMAGING 13:35 | PROVIDERS: ATTEND Internal Medicine Endocrinology, Diabetes & Metabolism | DX: Z13.820 Encounter for screening for osteoporosis (principal); M81.0 Age-related osteoporosis without current pathological fracture ==

== ENCOUNTER → 2018-06-04 | Outpatient (CLI) | payer OTHER | LOC: FCPNEURO 23:22 | PROVIDERS: ATTEND Internal Medicine Sleep Medicine | DX: G47.33 Obstructive sleep apnea (adult) (pediatric) (principal) ==